=== PATIENT | male | born 1990 | race Caucasian/White ===

== ENCOUNTER 2017-06-06 07:25 | Day surgery (SDC) | payer BC ==
[2017-06-06] MEDS ORDERED: Lactated Ringer's 500 ML IV ONE (08:22)
[2017-06-06] MEDS ORDERED: Propofol 10 mg/ml Inj (20 ML) ONE (09:39)
[2017-06-06 09:59] VITALS: RESP 18; O2SAT 98
[2017-06-06 10:07] VITALS: BP 97/49; PULSE 71; TEMP 97.4
== END 2017-06-06 11:39 | disposition home or self-care (01) ==
LOC: H.ENDO 07:25
PROVIDERS: ATTEND Internal Medicine Gastroenterology
DX: K21.9 Gastro-esophageal reflux disease without esophagitis (principal); K44.9 Diaphragmatic hernia without obstruction or gangrene; K22.8 Other specified diseases of esophagus; K20.9 Esophagitis, unspecified; K29.70 Gastritis, unspecified, without bleeding; K26.9 Duodenal ulcer, unspecified as acute or chronic, without hemorrhage or perforation; K31.89 Other diseases of stomach and duodenum
CPT/HCPCS: 43239; 88305; 88312; 88313; 88342; J2001; J2704; J7120